=== PATIENT | female | born 1955 | race Caucasian/White ===

== ENCOUNTER 2019-08-23 07:27 | Day surgery (SDC) | payer OTHER ==
[2019-08-17 11:07] VITALS: BMI 36.7
[2019-08-23] MEDS ORDERED: CYCLOPENTOLATE 2% OPHTH SOLN 2 ML BOTTLE ONE (07:38)
[2019-08-23] MEDS ORDERED: CIPROFLOXACIN 0.3% EYE DROPS 5 ML BOTTLE ONE (07:38)
[2019-08-23] MEDS ORDERED: PHENYLEPHRINE 2.5% OPHTH SOLN 15 ML BOTTLE ONE (07:39)
[2019-08-23] MEDS ORDERED: TROPICAMIDE 1% OPHTH SOLN 15 ML BOTTLE ONE (07:39)
[2019-08-23 08:06] VITALS: TEMP 98.1
[2019-08-23] MEDS ORDERED: TROPICAMIDE 1% OPHTH SOLN 15 ML BOTTLE OD ONE ×3 (08:10→08:20)
[2019-08-23] MEDS ORDERED: CIPROFLOXACIN HCL 0.3% OPHTH 2.5ML BOTTLE OD ONE ×3 (08:10→08:20)
[2019-08-23] MEDS ORDERED: PHENYLEPHRINE 2.5% OPHTH SOLN 15 ML BOTTLE OD ONE ×3 (08:10→08:20)
[2019-08-23] MEDS ORDERED: CYCLOPENTOLATE 2% OPHTH SOLN 2 ML BOTTLE OD ONE ×3 (08:10→08:20)
[2019-08-23] MEDS ORDERED: BSS (NA/CA/MG/K) BALANCED SALT SOLUTION OPHTH SOLN 15 ML BOTTLE ONE (09:36)
[2019-08-23] MEDS ORDERED: LIDOCAINE 1% P/F 10 MG/ML VIAL ONE (09:36)
[2019-08-23] MEDS ORDERED: CARBACHOL 0.01% INTRA-OCULAR 1.5 ML VIAL ONE (09:37)
[2019-08-23] MEDS ORDERED: NEO/POLYMYX B SULF/DEXAMETH OPHTHALMIC 5ML BOTTLE ONE (09:37)
[2019-08-23] MEDS ORDERED: MIDAZOLAM HCL 2 MG/2 ML SINGLE DOSE VIAL ONE ×2 (09:49→09:52)
[2019-08-23 10:45] VITALS: BP 150/85; PULSE 74
--- NOTE | 2019-08-24 10:11 | OP ---
DATE OF OPERATION: 08/23/2019 OPERATIVE PROCEDURE: Lens Phacoemulsification with Posterior Chamber Intraocular Lens Placement, Right Eye. PREOPERATIVE DIAGNOSIS: Visually Significant Cataract of Right Eye. POSTOPERATIVE DIAGNOSIS: Visually Significant Cataract of Right Eye. SURGEON: Octavio Estrada MD ANESTHESIA: MAC ANESTHESIOLOGIST: PROCEDURE: The patient was brought to the operating room and placed under monitored anesthesia care by Anesthesia. A drop of Tetracaine was then placed over the right eye. The patient was then prepped and draped in the usual sterile manner. A speculum was then placed over the right eye. The eye was then well irrigated with copious amounts of BSS (balanced salt solution). The operating microscope was then moved into position. A paracentesis was performed using a 15 degree blade. At this point 0.5 mL of 1% preservative free-lidocaine was injected into the anterior chamber. Amvisc plus was then injected into the anterior chamber. A clear corneal incision was then formed using a 2.2 mm keratome. A capsulorrhexis was then performed in a continuous circular fashion beginning with a cystotome completed with an Utratas forceps. Hydrodissection was then performed using BSS on a cannula. The phaco probe was then introduced through the corneal wound and the cataract was removed using the phaco chop technique. Approximately 3 seconds of absolute phaco time was used. The remaining cortex was then removed using irrigation and aspiration with an I/A probe. The capsule was then filled with regular Amvisc and the capsule was noted to be intact. A previously selected foldable posterior chamber intraocular lens was then injected into the capsule through the corneal wound using a lens injector. It was then dialed into position using a Sinskey hook. The Amvisc was then removed using irrigation and aspiration. Miostat was then injected through the paracentesis to constrict the pupil. The paracentesis and corneal wound were then hydrated and noted to be watertight. A drop of Maxitrol was then placed over the eye. The speculum was removed and clear shield was taped over the eye. The patient tolerated the procedure well and there were no surgical complications. The patient was asked to follow up in my office the next day. OCTAVIO ESTRADA M.D. [id number]
== END 2019-08-23 10:40 | disposition home or self-care (01) ==
LOC: FASU 07:27
PROVIDERS: ATTEND Ophthalmology
PROC: 08RJ3JZ Replacement of Right Lens with Synthetic Substitute, Percutaneous Approach (ICD-10-PCS; principal; 2019-08-23 09:51)
DX: H26.8 Other specified cataract (principal)

== ENCOUNTER 2020-01-22 20:18 | Inpatient (IN) | payer OTHER ==
--- NOTE | 2020-01-22 20:32 | PDOC ---
Rapid Medical Evaluation Chief Complaint: Nausea/Vomiting Time Seen by Provider: 01/22/20 20:29 Medical Evaluation: Allergies Allergy/AdvReac Type Severity Reaction Status Date / Time levofloxacin [From Levaquin] Allergy Severe THROAT Verified 08/23/19 07:58 CLOSES Sulfa (Sulfonamide Allergy Severe THROAT Verified 08/23/19 07:58 Antibiotics) CLOSES 01/22/20 20:29 64 year old female c/o vomiting " something is stuck in my lap band" x 3 days. Surgeon: Dr. garcia lap band 2012 A: vomiting P: labs Discharge Disposition - Diagnosis Intractable vomiting with nausea - Referrals - Patient Instructions - Post Discharge Activity
--- NOTE | 2020-01-22 21:13 | PDOC ---
Attending Attestation - Resident Resident Name: Gareth Kaur - ED Attending Attestation I have performed the following: I have examined & evaluated the patient, The case was reviewed & discussed with the resident, I agree w/resident's findings & plan - HPI HPI: 01/22/20 22:53 see resident hpi - Physicial Exam PE: 01/22/20 22:53 see resident exam - Medical Decision Making 01/22/20 22:53 64-year-old female with history of lap band surgery complaining of discomfort near her lap band port as well as nausea/vomiting for several days She now also complains of headache that began several days into the vomiting We will plan for labs including troponin and EKG CT scan of the brain as patient is at risk for subarachnoid hemorrhage in light of vomiting CT scan of the abdomen and pelvis with bariatric protocol p.o. contrast as well as IV contrast to assess for LAP-BAND complications Reglan and IV fluids administered Discharge - Discharge Information Problems reviewed: Yes Clinical Impression/Diagnosis: Vomiting, LAP-BAND surgery status, Headache - Follow up/Referral - Patient Discharge Instructions - Post Discharge Activity
[2020-01-22] MEDS ORDERED: METOCLOPRAMIDE HCL INJECTION 10 MG/2 ML VIAL IVPUSH ONE (21:29)
[2020-01-22] MEDS ORDERED: ACETAMINOPHEN 1000 MG/100 ML VIAL (NON FORMULARY) IVPB ONE (21:29)
[2020-01-22] MEDS ORDERED: SODIUM CHLORIDE 0.9% 500 ML INFUS.BAG IV ONE (21:30)
[2020-01-22] MEDS ORDERED: METOCLOPRAMIDE HCL INJECTION 10 MG/2 ML VIAL ONE (21:35)
[2020-01-22 21:45] LABS: BASO % 0.2 % (0-2.0); EOS % 0.9 % (0-4.5); HEMATOCRIT 45.2 % (32.4-45.2); HEMOGLOBIN 15.4 GM/dL (10.7-15.3); LYMPH % 15.6 % (8-40); MCH 33.2 pg (25.7-33.7); MEAN CELL VOLUME 97.7 fl (80-96); MEAN PLT VOLUME 7.8 fl (7.5-11.1); NEUT % 73.3 % (42.8-82.8); PLATELET COUNT 200 K/MM3 (134-434); RBC 4.63 M/mm3 (3.60-5.2); RDW 12.7 % (11.6-15.6); WHITE BLOOD COUNT 8.2 K/mm3 (4.0-10.0)
--- NOTE | 2020-01-22 21:55 | PDOC ---
History of Present Illness - General Chief Complaint: Nausea/Vomiting Stated Complaint: VOMITING/NAUSEA/HEADACHE Time Seen by Provider: 01/22/20 20:29 - History of Present Illness Initial Comments: 01/22/20 21:41 64yo female w/PMH lap band 2012, fibromyalgia, HTN, RA, OA, hypothyroidism p/w non-bloody vomiting x2 days and inability to tolerate PO. States has not been able to keep food down since eating spare ribs 2 days prior. No nausea, and there is only vomiting after food. Last BM yesterday, and she does not go every day. Passing gas. Also complains of pounding headache different from usual headaches for several hours. Gradual onset, all over head, no photo/phonophobia. Denies f/c, CP, SOB, AP, urinary symptoms. PMHX: as in HPI PSHX: lap band, hysterectomy Meds:atenolol, synthroid, simvastatin, trazodone. gabapentin Allergies: sulfa, levoquine Tob: denies Etoh: occ. wine Rec drugs: denies PCP: Surgeon: Tony CHEN GENERAL/CONSTITUTIONAL: No fever or chills. No weakness. HEAD, EYES, EARS, NOSE AND THROAT: No change in vision. No ear pain or discharge. No sore throat. CARDIOVASCULAR: No chest pain or shortness of breath RESPIRATORY: No cough, wheezing, or hemoptysis. GASTROINTESTINAL: +vomiting, no diarrhea or constipation. GENITOURINARY: No dysuria, frequency, or change in urination. MUSCULOSKELETAL: No joint or muscle swelling or pain. No neck or back pain. SKIN: No rash NEUROLOGIC: + headache, no vertigo, loss of consciousness, or change in streng th/sensation. ENDOCRINE: No increased thirst. No abnormal weight change HEMATOLOGIC/LYMPHATIC: No anemia, easy bleeding, or history of blood clots. ALLERGIC/IMMUNOLOGIC: No hives or skin allergy. PE GENERAL: Awake, alert, and fully oriented, in no acute distress HEAD: No signs of trauma, normocephalic, atraumatic EYES: PERRLA, EOMI, sclera anicteric, conjunctiva clear ENT: hearing grossly normal, nares patent, oropharynx clear without exudates. Moist mucosa NECK: Normal ROM, supple, no lymphadenopathy, JVD, or masses LUNGS: No distress, speaks full sentences, clear to auscultation bilaterally HEART: Regular rate and rhythm, normal S1 and S2, no murmurs, rubs or gallops, peripheral pulses normal and equal bilaterally. ABDOMEN: Soft, tender around lap band port (baseline), normoactive bowel sounds. No guarding, no rebound. No masses EXTREMITIES : Normal inspection, Normal range of motion, no edema. No clubbing or cyanosis. NEUROLOGICAL: Cranial nerves II through XII grossly intact. Normal speech, no focal sensorimotor deficits SKIN: Warm, Dry, normal turgor, no rashes or lesions noted Assessment and Plan 64yo female w/PMH lap band 2011, fibromyalgia, HTN, RA, OA, hypothyroidism p/w non-bloody vomiting x2 days and inability to tolerate PO, also "different from usual" headache for several hours. #vomiting, abdominal tenderness around port. Differential includes but not limited to obstruction, bowel ischemia, ACS, gastroenteritis, pancreatitis -EKG: NSR -CBC, CMP, lipase, cardiac enzymes, lactate: wnl, hemo-concentrated -CT A/P with oral and IV contrast -Reglan -1000ml NS #headache. Differential includes but not limited to dehydration, tension, SAH -CT Head: wnl -CT A/P: equivocal (see report) Reassess: Patient reports 3 episodes of watery emesis after drinkining oral contrast. Dr. Jimenez called and aware. Will follow as consumer experience consultant Admit to hospitalist 01/22/20 23:51 01/23/20 00:09 Signed out to admitting team. Past History - Medical History Allergies/Adverse Reactions: Allergies Allergy/AdvReac Type Severity Reaction Status Date / Time levofloxacin [From Levaquin] Allergy Severe THROAT Verified 01/22/20 20:30 CLOSES Sulfa (Sulfonamide Allergy Severe THROAT Verified 01/22/20 20:30 Antibiotics) CLOSES Home Medications: Ambulatory Orders Atenolol [Tenormin -] 50 mg PO DAILY 09/29/11 Levothyroxine [Synthroid -] 50 mcg PO DAILY 12/11/15 Simvastatin [Zocor -] 20 mg PO HS 12/11/15 traZODone HCL [Desyrel -] 50 mg PO HS 12/11/15 Cyanocobalamin (Vitamin B-12) [Vitamin B12] 2,500 mcg PO DAILY 08/17/19 Melatonin 10 mg PO HS 08/17/19 Vitamin E 800 unit PO DAILY 08/17/19 Anemia: No Asthma: Yes (seasonal) Cancer: No Cardiac Disorders: Yes (PT ON ATENOLOL R/T "PALPITATIONS") CVA: No COPD: No CHF: No Dementia: No Diabetes: No GI Disorders: Yes (GERD) Disorders: No HTN: Yes Hypercholesterolemia: Yes Liver Disease: No Seizures: No Thyroid Disease: Yes (2010) - Surgical History Abdominal Surgery: Yes (lap band 09/2011) Appendectomy: No Cardiac Surgery: No Cholecystectomy: No Lung Surgery: No Neurologic Surgery: No Orthopedic Surgery: No - Psycho-Social/Smoking History Smoking History: Never smoked Have you smoked in the past 12 months: No - Substance Abuse Hx (Audit-C & DAST Scrn) How often the patient has a drink containing alcohol: Never Score: In Men: 4 or > Positive; In Women: 3 or > Positive: 0 Screen Result (Pos requires Nsg. Audit-10AR): Negative In the last yr the pt used illegal drug/Rx for NonMed reason: No Score: Yes response is considered Positive: 0 Screen Result (Positive result requires Nsg. DAST-10): Negative *Physical Exam - Vital Signs Last Vital Signs Temp Pulse Resp BP Pulse Ox 98.7 F 82 18 176/89 H 97 01/22/20 20:28 01/22/20 20:28 01/22/20 20:28 01/22/20 20:28 01/22/20 20:28 ED Treatment Course - LABORATORY CBC & Chemistry Diagram: 01/22/20 21:27 01/22/20 21:27 - RADIOLOGY Radiology Studies Ordered: Category Date Time Status ABDOMEN & PELVIS CT WITH CONTR [CT] Stat CT Scan 01/22/20 21:[address] WITHOUT CONTRAST [CT] Stat CT Scan 01/22/20 21:35 Ordered Discharge - Discharge Information Problems reviewed: Yes Clinical Impression/Diagnosis: Vomiting, LAP-BAND surgery status, Headache - Follow up/Referral Referrals: Matthew Bañuelos MD [Primary Care Provider] - - Patient Discharge Instructions - Post Discharge Activity
[2020-01-22 22:12] LABS: ALBUMIN 3.9 g/dl (3.4-5.0); BILIRUBIN,TOTAL 0.5 mg/dL (0.2-1); CALCIUM 9.2 mg/dL (8.5-10.1); POTASSIUM 4.2 mmol/L (3.5-5.1); TOT PROT 6.9 g/dl (6.4-8.2)
[2020-01-23 00:41] LABS: URINE APPEARANCE CLEAR; URINE BILIRUBIN NEGATIVE (NEGATIVE); URINE COLOR YELLOW; URINE GLUCOSE (UA) NEGATIVE (NEGATIVE); URINE KETONE 1+ (NEGATIVE); URINE LEUK ESTERASE NEGATIVE (NEGATIVE); URINE NITRITE NEGATIVE (NEGATIVE); URINE PROTEIN NEGATIVE (NEGATIVE); URINE UROBILINOGEN 0.2 mg/dL (0.2-1.0)
[2020-01-23] MEDS ORDERED: ACETAMINOPHEN/CAFFEINE/BUTALBITAL 1 TAB PO PRN (00:44)
[2020-01-23] MEDS ORDERED: FAMOTIDINE 20 MG/50 ML IVPB 20 MG/50 ML MG IVPB ONE ×2 (00:47→01:00)
--- NOTE | 2020-01-23 00:50 | PN ---
Teaching Attending Note Name of Resident: Neri Austin ATTENDING PHYSICIAN STATEMENT I saw and evaluated the patient. I reviewed the resident's note and discussed the case with the resident. I agree with the resident's findings and plan as documented. SUBJECTIVE: This is a 64 year old woman with a history of HTN, hyperlipidemia, hypothyroidism, obesity, lap band, hysterectomy who comes to the ED complaining of nausea and vomiting x 2 days. She denies abdominal pain, fever, chills, hematemesis, diarrhea, melena, rectal bleeding. Her last BM was yesterday and she reports passing flatus. She had a similar episode in 2016 which required loosening of the lap band. OBJECTIVE: Vital Signs Period Temp Pulse Resp BP Sys/Colbert Pulse Ox Last 24 Hr 98.6 F-98.7 F 75-82 18-18 150-176/77-89 95-97 HEART: S1S2, RRR LUNGS: Clear ABDOMEN: Obese, soft, non-tender, non-distended, normal BS EXTREMITIES: No edema Laboratory Tests 01/22/20 01/22/20 01/22/20 21:27 21:27 21:27 WBC 8.2 RBC 4.63 Hgb 15.4 H Hct 45.2 D MCV 97.7 H MCH 33.2 MCHC 34.0 RDW 12.7 Plt Count 200 D MPV 7.8 D Absolute Neuts (auto) 6.0 Neutrophils % 73.3 Lymphocytes % 15.6 Monocytes % 10.0 Eosinophils % 0.9 Basophils % 0.2 Nucleated RBC % 0 Sodium 142 Potassium 4.2 Chloride 106 Carbon Dioxide 27 Anion Gap 9 BUN 14.0 Creatinine 1.0 Est GFR (CKD-EPI)AfAm 68.47 Est GFR (CKD-EPI)NonAf 59.07 Random Glucose 96 Lactic Acid Calcium 9.2 Total Bilirubin 0.5 AST 11 L ALT 19 Alkaline Phosphatase 52 Creatine Kinase 28 Troponin I < 0.02 Total Protein 6.9 Albumin 3.9 Lipase 125 Urine Color Urine Appearance Urine pH Ur Specific [place] Urine Protein Urine Glucose (UA) Urine Ketones Urine Blood Urine Nitrite Urine Bilirubin Urine Urobilinogen Ur Leukocyte Esterase 01/22/20 01/23/20 21:27 00:20 WBC RBC Hgb Hct MCV MCH MCHC RDW Plt Count MPV Absolute Neuts (auto) Neutrophils % Lymphocytes % Monocytes % Eosinophils % Basophils % Nucleated RBC % Sodium Potassium Chloride Carbon Dioxide Anion Gap BUN Creatinine Est GFR (CKD-EPI)AfAm Est GFR (CKD-EPI)NonAf Random Glucose Lactic Acid 0.9 Calcium Total Bilirubin AST ALT Alkaline Phosphatase Creatine Kinase Troponin I Total Protein Albumin Lipase Urine Color Yellow Urine Appearance Clear Urine pH 7.0 Ur Specific [place] 1.044 H Urine Protein Negative Urine Glucose (UA) Negative Urine Ketones 1+ H Urine Blood Negative Urine Nitrite Negative Urine Bilirubin Negative Urine Urobilinogen 0.2 Ur Leukocyte Esterase Negative Home Medications Medication Instructions Recorded Atenolol [Tenormin -] 50 mg PO DAILY 09/29/11 Levothyroxine [Synthroid -] 50 mcg PO DAILY 12/11/15 Simvastatin [Zocor -] 20 mg PO HS 12/11/15 traZODone HCL [Desyrel -] 50 mg PO HS 12/11/15 Cyanocobalamin (Vitamin B-12) 2,500 mcg PO DAILY 08/17/19 [Vitamin B12] Melatonin 10 mg PO HS 08/17/19 Vitamin E 800 unit PO DAILY 08/17/19 ASSESSMENT AND PLAN: This is a 64 year old woman with a history of HTN, hyperlipidemia, hypothyroidism, obesity, lap band, hysterectomy who presented to the ED with nausea and vomiting x 2 days. 1. Nausea/vomiting - No evidence of SBO - NPO - IV fluid - Bariatric surgery consult to evaluate lap band
--- NOTE | 2020-01-23 00:55 | HP ---
CHIEF COMPLAINT: Nausea, vomiting and headache x 2 days HISTORY OF PRESENT ILLNESS: Pt is a 64 year old female with PMHx of lap band surgery in 2012 placed by gen surg (Dr. Jimenez), hypertension, hypothroidism, hyperlipidemia presenting with nausea and vomiting for the past 2 days. Pt states the episodes have been too numerous to count since the episodes began. She was eating spare ribs when the episodes of vomiting began. Pt states that any time she tries to ingest anything, whether solid or liquid, she is unable to keep it down and vomits it out immediately. Descirbes the vomit as nonbloody, nonbilious and only consists of whatever she just attempted to ingest. Pt states last BM was yesterday, and no urinary changes. Pt also reports headache that started 2 days ago as well. She reports it as constant, and diffusely throughout her head. She has migraines at home but this is different than those episodes. Nothing she has taken has helped her symptoms. In ED, pt given Reglan and given 1L NS with no improvement of symptoms. Pt states this is the same symptoms and presentation she had as in 2016 when she was admitted to the hospital. GI (Dr. Olguin) did EGD and contrast didn't pass past the lap band as band had malpositioned and slipped since surgery. 3 mL of fluid was aspirated and patient felt relief afterwards, tolerating PO and barium was noted to flow past band easily afterwards. Of note, pt begun to desaturate during procedure after aspiration, recovered once EGD scope removed. Last colonoscopy 5 years ago unremarkable. Admits to nausea and numerous episodes of vomiting and headache. Denies abdominal pain, diarrhea, constipation, chest pain, SOB, urinary issues. PAST MEDICAL HISTORY: As stated in HPI PAST SURGICAL HISTORY: Lap band in 2012 Hysterectomy LORNA/BSO Social History: Smoking: Denies Alcohol: Rarely, social occasions Drugs: Denies Allergies levofloxacin [From Levaquin] Allergy (Severe, Verified 01/22/20 20:30) THROAT CLOSES Sulfa (Sulfonamide Antibiotics) Allergy (Severe, Verified 01/22/20 20:30) THROAT CLOSES HOME MEDICATIONS: Home Medications Medication Instructions Recorded Atenolol [Tenormin -] 50 mg PO DAILY 09/29/11 Levothyroxine [Synthroid -] 50 mcg PO DAILY 12/11/15 Simvastatin [Zocor -] 20 mg PO HS 12/11/15 traZODone HCL [Desyrel -] 50 mg PO HS 12/11/15 Cyanocobalamin (Vitamin B-12) 2,500 mcg PO DAILY 08/17/19 [Vitamin B12] Melatonin 10 mg PO HS 08/17/19 Vitamin E 800 unit PO DAILY 08/17/19 REVIEW OF SYSTEMS CONSTITUTIONAL: Admits headache Absent: fever, chills, diaphoresis, generalized weakness, malaise, loss of appetite, weight change HEENT: Absent: rhinorrhea, nasal congestion, throat pain, throat swelling, difficulty swallowing, mouth swelling, ear pain, eye pain, visual changes CARDIOVASCULAR: Absent: chest pain, syncope, palpitations, irregular heart rate, lightheadedness, peripheral edema RESPIRATORY: Absent: cough, shortness of breath, dyspnea with exertion, orthopnea, wheezing, stridor, hemoptysis GASTROINTESTINAL: Admits to nausea, vomiting Absent: abdominal pain, abdominal distension, diarrhea, constipation, melena, hematochezia GENITOURINARY: Absent: dysuria, frequency, urgency, hesitancy, hematuria, flank pain, genital pain MUSCULOSKELETAL: Absent: myalgia, arthralgia, joint swelling, back pain, neck pain SKIN: Absent: rash, itching, pallor HEMATOLOGIC/IMMUNOLOGIC: Absent: easy bleeding, easy bruising, lymphadenopathy, frequent infections ENDOCRINE: Absent: unexplained weight gain, unexplained weight loss, heat intolerance, cold intolerance NEUROLOGIC: Absent: headache, focal weakness or paresthesias, dizziness, unsteady gait, seizure, mental status changes, bladder or bowel incontinence PSYCHIATRIC: Absent: anxiety, depression, suicidal or homicidal ideation, hallucinations. PHYSICAL EXAMINATION Vital Signs - 24 hr 01/22/20 01/22/20 20:28 20:55 Temperature 98.7 F 98.6 F Pulse Rate 82 Pulse Rate [ 75 Apical] Respiratory 18 18 Rate Blood Pressure 176/89 H Blood Pressure 150/77 [Right Arm] O2 Sat by Pulse 97 95 Oximetry (%) GENERAL: Awake, alert, and fully oriented, in no acute distress. HEAD: Normal with no signs of trauma. EYES: Pupils equal, round and reactive to light, extraocular movements intact, sclera anicteric, conjunctiva clear. No lid lag. EARS, NOSE, THROAT: Ears normal, nares patent, oropharynx clear without exudates. Moist mucous membranes. NECK: Normal range of motion, supple without lymphadenopathy, JVD, or masses. LUNGS: Breath sounds equal, clear to auscultation bilaterally. No wheezes, and no crackles. No accessory muscle use. HEART: Regular rate and rhythm, normal S1 and S2 without murmur, rub or gallop. ABDOMEN: Soft, nontender, not distended, normoactive bowel sounds, no guarding, no rebound, no masses. No hepatomegaly or splenomegaly. MUSCULOSKELETAL: Normal range of motion at all joints. No bony deformities or tenderness. No CVA tenderness. UPPER EXTREMITIES: 2+ pulses, warm, well-perfused. No cyanosis. No clubbing. No peripheral edema. LOWER EXTREMITIES: 2+ pulses, warm, well-perfused. No calf tenderness. No peripheral edema. NEUROLOGICAL: Cranial nerves II-XII intact. Normal speech. Normal gait. PSYCHIATRIC: Cooperative. Good eye contact. Appropriate mood and affect. SKIN: Warm, dry, normal turgor, no rashes or lesions noted, normal capillary refill. Laboratory Results - last 24 hr 01/22/20 01/22/20 01/22/20 21:27 21:27 21:27 WBC 8.2 RBC 4.63 Hgb 15.4 H Hct 45.2 D MCV 97.7 H MCH 33.2 MCHC 34.0 RDW 12.7 Plt Count 200 D MPV 7.8 D Absolute Neuts (auto) 6.0 Neutrophils % 73.3 Lymphocytes % 15.6 Monocytes % 10.0 Eosinophils % 0.9 Basophils % 0.2 Nucleated RBC % 0 Sodium 142 Potassium 4.2 Chloride 106 Carbon Dioxide 27 Anion Gap 9 BUN 14.0 Creatinine 1.0 Est GFR (CKD-EPI)AfAm 68.47 Est GFR (CKD-EPI)NonAf 59.07 Random Glucose 96 Lactic Acid Calcium 9.2 Total Bilirubin 0.5 AST 11 L ALT 19 Alkaline Phosphatase 52 Creatine Kinase 28 Troponin I < 0.02 Total Protein 6.9 Albumin 3.9 Lipase 125 Urine Color Urine Appearance Urine pH Ur Specific [place] Urine Protein Urine Glucose (UA) Urine Ketones Urine Blood Urine Nitrite Urine Bilirubin Urine Urobilinogen Ur Leukocyte Esterase 01/22/20 01/23/20 21:27 00:20 WBC RBC Hgb Hct MCV MCH MCHC RDW Plt Count MPV Absolute Neuts (auto) Neutrophils % Lymphocytes % Monocytes % Eosinophils % Basophils % Nucleated RBC % Sodium Potassium Chloride Carbon Dioxide Anion Gap BUN Creatinine Est GFR (CKD-EPI)AfAm Est GFR (CKD-EPI)NonAf Random Glucose Lactic Acid 0.9 Calcium Total Bilirubin AST ALT Alkaline Phosphatase Creatine Kinase Troponin I Total Protein Albumin Lipase Urine Color Yellow Urine Appearance Clear Urine pH 7.0 Ur Specific [place] 1.044 H Urine Protein Negative Urine Glucose (UA) Negative Urine Ketones 1+ H Urine Blood Negative Urine Nitrite Negative Urine Bilirubin Negative Urine Urobilinogen 0.2 Ur Leukocyte Esterase Negative ASSESSMENT/PLAN: Pt is a 64yo F with a PMHx of lap band surgery performed by Dr. Jimenez in 2011, and fluid removal via EGD for similar symptoms with relief [place] [address] Olguin and HTN presenting with nausea, vomiting and headache for the past 2 days. Noted to be hypertensive on admission (176/), unremarkable physical exam. CT abdomen pelvis shows no obstruction, CT head with no acute changes. Admitted for na usea/vomiting likely secondary to lap band, for follow up with GI and surgery. #Nausea/vomiting - Hx of lap band surgery in 2011 - EGD done in 2016 and malpositioned lap band was found, 3 mL of fluid was removed - Due to similar presentation as 2016, likely secondary to band malposition and fluid collection causing intolerance to PO - CT abdomen/pelvis showed no obstruction or other abnormalities - Consulted surgery (Dr. Jimenez); had done original lap band surgery in 2011 - Consulted GI (Dr. Hnids) for possible EGD and evaluation - NPO for possible procedure - Given Reglan in ED with no improvement - Gave Zofran as she uses it at home with improvement - NS @ 100cc/hr due to fluid loss during vomiting episodes - Pepcid given once due to vomiting #Headache - Possibly secondary to nausea/vomiting, hypertension - CT head negative for acute bleed - Fiorcet given, helps at home with migraines #Hypertension - Pt hypertensive in ED (176/69), later decreased to 150s/70s - Continue home atenolol and monitor vitals #Hx of hypothyroidism - Cont home synthroid #Hx of hyperlipidemia - Cont home simvastatin #Rule out COVID - COVID test pending FEN: - NPO for possible procedure - NS @ 100cc/hr - No electrolyte abnormalities; BMP in AM Prophylaxis: - SCD ; no chemical therapy at this time due to possible surgery Dispo: Admitted to med-surg for possible procedure. Headache noted, given Fiorcet and will monitor for improvement. Continue home meds and monitor BP. Follow up on recs from GI and surgery. Family Medical History Family History: Unremarkable Problem List - Problem (1) Hyperlipidemia Code(s): E78.5 - HYPERLIPIDEMIA, UNSPECIFIED (2) Intractable vomiting with nausea Code(s): R11.2 - NAUSEA WITH VOMITING, UNSPECIFIED (3) LAP-BAND surgery status Code(s): Z98.84 - BARIATRIC SURGERY STATUS (4) Rheumatoid arthritis Code(s): M06.9 - RHEUMATOID ARTHRITIS, UNSPECIFIED (5) Coffee ground emesis Code(s): K92.0 - HEMATEMESIS (6) GERD (gastroesophageal reflux disease) Code(s): K21.9 - GASTRO-ESOPHAGEAL REFLUX DISEASE WITHOUT ESOPHAGITIS Qualifiers: Esophagitis presence: without esophagitis Qualified Code(s): K21.9 - Gastro-esophageal reflux disease without esophagitis (7) Gastric band slippage Code(s): T85.528A - DISPLACEMENT OF GASTROINTESTINAL PROSTH DEV/GRFT, INIT (8) Gastritis Code(s): K29.70 - GASTRITIS, UNSPECIFIED, WITHOUT BLEEDING Visit type - Emergency Visit Emergency Visit: Yes ED Registration Date: 01/22/20 Care time: The patient presented to the Emergency Department on the above date and was hospitalized for further evaluation of their emergent condition. - New Patient This patient is new to me today: Yes Date on this admission: 01/22/20 - Critical Care Critical Care patient: No ATTENDING PHYSICIAN STATEMENT I saw and evaluated the patient. I reviewed the resident's note and discussed the case with the resident. I agree with the resident's findings and plan as documented. SUBJECTIVE: OBJECTIVE: ASSESSMENT AND PLAN:
[2020-01-23] MEDS: SODIUM CHLORIDE 1,000 ML IV SCH ×2 (01:16→11:17)
[2020-01-23 04:22] VITALS: BMI 36.3
[2020-01-23] MEDS ORDERED: ACETAMINOPHEN 1000 MG/100 ML VIAL (NON FORMULARY) IVPB ONE ×2 (06:48→17:54)
[2020-01-23 07:14] LABS: BASO % 0.4 % (0-2.0); EOS % 0.6 % (0-4.5); HEMATOCRIT 43.5 % (32.4-45.2); HEMOGLOBIN 14.8 GM/dL (10.7-15.3); LYMPH % 17.8 % (8-40); MCH 33.8 pg (25.7-33.7); MEAN CELL VOLUME 99.3 fl (80-96); MEAN PLT VOLUME 8.4 fl (7.5-11.1); MONO % 10.9 % (3.8-10.2); NEUT % 70.3 % (42.8-82.8); PLATELET COUNT 186 K/MM3 (134-434); RBC 4.38 M/mm3 (3.60-5.2); WHITE BLOOD COUNT 8.2 K/mm3 (4.0-10.0)
[2020-01-23 07:40] LABS: BLOOD UREA NITROGEN 10.5 mg/dL (7-18); CALCIUM 8.4 mg/dL (8.5-10.1); CREATININE 0.8 mg/dL (0.55-1.3); POTASSIUM 3.6 mmol/L (3.5-5.1)
--- NOTE | 2020-01-23 09:57 | EKG ---
Test Reason : Blood Pressure : / mmHG Vent. Rate : 073 BPM Atrial Rate : 073 BPM P-R Int : 206 ms QRS Dur : 074 ms QT Int : 386 ms P-R-T Axes : 050 -18 000 degrees QTc Int : 425 ms NORMAL SINUS RHYTHM WITH 1ST DEGREE A-V BLOCK LEFT VENTRICULAR HYPERTROPHY NONSPECIFIC ST ABNORMALITY ABNORMAL ECG Confirmed by MD YUNG, SAKSHI ([id number]) on 01/23/2020 9:57:06 AM Referred By: Confirmed By:SAKSHI BARRAGAN MD
[2020-01-23] MEDS: ATENOLOL 50 MG TABLET (FP) PO SCH ×2 (11:19→18:45)
--- NOTE | 2020-01-23 13:01 | PN ---
Physical Exam: SUBJECTIVE: Patient seen and examined at bedside this morning. Patient admitted overnight due to nausea and vomiting. patient would not want to try anything PO until she sees GI/surgeon. Otherwise, no more episodes of N/V, denies fevers, chills, chest pain, SOB , abdominal pain, diarrhea, urinary symptoms OBJECTIVE: Vital Signs Temperature 99.0 F 01/23/20 09:50 Pulse Rate 78 01/23/20 09:50 Respiratory Rate 18 01/23/20 09:50 Blood Pressure 160/88 01/23/20 09:50 O2 Sat by Pulse Oximetry (%) 97 01/23/20 02:54 GENERAL: The patient is awake, alert, and fully oriented, in no acute distress. HEAD: Normal with no signs of trauma. EYES: PERRLA, EOMI, sclera anicteric, conjunctiva clear. ENT: moist mucous membranes. NECK: Trachea midline, full range of motion, supple. LUNGS: Breath sounds equal, clear to auscultation bilaterally HEART: Regular rate and rhythm, S1, S2 ABDOMEN: Soft, nontender, nondistended, normoactive bowel sounds EXTREMITIES: 2+ pulses, warm, well-perfused, no edema. NEUROLOGICAL: Cranial nerves II through XII grossly intact. Normal speech PSYCH: Normal mood, normal affect. SKIN: Warm, dry, normal turgor Laboratory Results - last 24 hr 01/22/20 01/22/20 01/22/20 21:27 21:27 21:27 WBC 8.2 RBC 4.63 Hgb 15.4 H Hct 45.2 D MCV 97.7 H MCH 33.2 MCHC 34.0 RDW 12.7 Plt Count 200 D MPV 7.8 D Absolute Neuts (auto) 6.0 Neutrophils % 73.3 Lymphocytes % 15.6 Monocytes % 10.0 Eosinophils % 0.9 Basophils % 0.2 Nucleated RBC % 0 Sodium 142 Potassium 4.2 Chloride 106 Carbon Dioxide 27 Anion Gap 9 BUN 14.0 Creatinine 1.0 Est GFR (CKD-EPI)AfAm 68.47 Est GFR (CKD-EPI)NonAf 59.07 Random Glucose 96 Lactic Acid Calcium 9.2 Total Bilirubin 0.5 AST 11 L ALT 19 Alkaline Phosphatase 52 Creatine Kinase 28 Troponin I < 0.02 Total Protein 6.9 Albumin 3.9 Lipase 125 Urine Color Urine Appearance Urine pH Ur Specific [place] Urine Protein Urine Glucose (UA) Urine Ketones Urine Blood Urine Nitrite Urine Bilirubin Urine Urobilinogen Ur Leukocyte Esterase 01/22/20 01/23/20 01/23/20 21:27 00:20 06:17 WBC 8.2 RBC 4.38 Hgb 14.8 Hct 43.5 MCV 99.3 H MCH 33.8 H MCHC 34.0 RDW 13.0 Plt Count 186 MPV 8.4 Absolute Neuts (auto) 5.8 Neutrophils % 70.3 Lymphocytes % 17.8 Monocytes % 10.9 H Eosinophils % 0.6 Basophils % 0.4 Nucleated RBC % 0 Sodium Potassium Chloride Carbon Dioxide Anion Gap BUN Creatinine Est GFR (CKD-EPI)AfAm Est GFR (CKD-EPI)NonAf Random Glucose Lactic Acid 0.9 Calcium Total Bilirubin AST ALT Alkaline Phosphatase Creatine Kinase Troponin I Total Protein Albumin Lipase Urine Color Yellow Urine Appearance Clear Urine pH 7.0 Ur Specific [place] 1.044 H Urine Protein Negative Urine Glucose (UA) Negative Urine Ketones 1+ H Urine Blood Negative Urine Nitrite Negative Urine Bilirubin Negative Urine Urobilinogen 0.2 Ur Leukocyte Esterase Negative 01/23/20 06:17 WBC RBC Hgb Hct MCV MCH MCHC RDW Plt Count MPV Absolute Neuts (auto) Neutrophils % Lymphocytes % Monocytes % Eosinophils % Basophils % Nucleated RBC % Sodium 141 Potassium 3.6 Chloride 108 H Carbon Dioxide 25 Anion Gap 8 BUN 10.5 Creatinine 0.8 Est GFR (CKD-EPI)AfAm 89.67 Est GFR (CKD-EPI)NonAf 77.37 Random Glucose 85 Lactic Acid Calcium 8.4 L Total Bilirubin AST ALT Alkaline Phosphatase Creatine Kinase Troponin I Total Protein Albumin Lipase Urine Color Urine Appearance Urine pH Ur Specific [place] Urine Protein Urine Glucose (UA) Urine Ketones Urine Blood Urine Nitrite Urine Bilirubin Urine Urobilinogen Ur Leukocyte Esterase Active Medications Generic Name Dose Route Start Last Admin Trade Name Freq PRN Reason Stop Dose Admin Acetaminophen/Butalbital/Caffeine 1 tablet 01/23/20 00:44 Fioricet - PO Q6H PRN HEADACHE Atenolol 50 mg 01/23/20 10:00 01/23/20 11:19 Tenormin - PO Not Given DAILY JOSE MARTIN Sodium Chloride 1,000 mls @ 100 mls/hr 01/23/20 00:45 01/23/20 11:17 Normal Saline - IV 100 mls/hr ASDIR JOSE MARTIN Administration Ondansetron HCl 4 mg 01/23/20 00:43 Zofran Injection IVPUSH Q6H PRN NAUSEA ASSESSMENT/PLAN: Pt is a 64yo F with a PMHx of lap band surgery performed by Dr. Jimenez in 2011, and fluid removal via EGD for similar symptoms with relief in [address] Olguin and HTN presenting with nausea, vomiting and headache for the past 2 days. Noted to be hypertensive on admission (176/79), unremarkable physical exam. CT abdomen pelvis shows no obstruction, CT head with no acute changes. Admitted for nausea/vomiting likely secondary to lap band, for follow up with GI and surgery. #Nausea/vomiting - Hx of lap band surgery in 2011 - EGD done in 2016 and malpositioned lap band was found, 3 mL of fluid was removed - Due to similar presentation as 2016, likely secondary to band malposition and fluid collection causing intolerance to PO - CT abdomen/pelvis showed no obstruction or other abnormalities - Consulted surgery (Dr. Jimenez) - Consulted GI (Dr. Hinds) - NPO for possible procedure, patient refusing to try PO at this time without evaluation from GI/surgery - Gave Zofran as she uses it at home with improvement - NS @ 100cc/hr #Headache - Possibly secondary to nausea/vomiting, heat - CT head negative for acute bleed - Fioricet given, helps at home with migraines #Hypertension - Continue home atenolol and monitor vitals #Hx of hypothyroidism - Cont home synthroid #Hx of hyperlipidemia - Cont home simvastatin #Rule out COVID - COVID test pending #FEN: - NPO for possible procedure - NS @ 100cc/hr - routine bmp monitoring #Prophylaxis: - SCD ; no chemical therapy at this time due to possible surgery #Dispo: -med surg Visit type - Emergency Visit Emergency Visit: Yes ED Registration Date: 01/22/20 Care time: The patient presented to the Emergency Department on the above date and was hospitalized for further evaluation of their emergent condition. - New Patient This patient is new to me today: Yes Date on this admission: 01/23/20 - Critical Care Critical Care patient: No ATTENDING PHYSICIAN STATEMENT I saw and evaluated the patient. I reviewed the resident's note and discussed the case with the resident. I agree with the resident's findings and plan as documented. SUBJECTIVE: OBJECTIVE: ASSESSMENT AND PLAN:
--- NOTE | 2020-01-23 16:25 | CONSULT ---
Consult - text type - Consultation Consultation Note: 01/23/2020 64 y.o. female well-known to me who presents with 2 day history of N/V after eating ribs on Wednesday. Pt states could not hold down food or water. Pt with Lap-Band in 2011, and presented with similar complaints in 2015. At that time fluid was removed and patient recovered with no problems. Pt states has gained weight last few years, but recently lost 6 pounds after retiring in the last few months. P/E- Gen- awake, alert, NAD tongue- slight dehydration Abd- all trocar sites well-healed right sub-Q port palpated in upper abdomen WBC-8.2 H/H-14.8/43.5 UGI (Barium)- performed in Radiology department Band at 90 degree angle (should be at 45-60 degrees) Increased stomach above Band and Barium did not pass Under sterile conditions, in x-ray, right sub-Q port accessed and all fluid removed (3.0 cc NS). Barium then flowed past band into distal stomach. I- Vomiting secondary to partially slipped gastric band Rec- 1 Keep Band emptied with no fluid 2 Begin liquids today, advance to soft diet in AM as tolerated 3 May be discharged home 01/23 if tolerating soft diet 4 F/U with Dr Jimenez (Bariatric Surgery) in 3 weeks, or sooner if symptoms return
--- NOTE | 2020-01-23 18:15 | CON.GI ---
Consult Consult Specialty:: Gastroenterology ( covering the [facility] GI service) Referred by:: Dr Neri Austin Reason for Consultation:: Vomiting - History of Present Illness Chief Complaint: Vomiting History of Present Illness: 64F developed intractible vomiting been after eating some spare ribs. She has already been seen by Dr Jimenez who determined that she had an obstruction as her gastric ring slipped due to repeated vomiting. He has already relieved the obstruction by decompressing the lap band. She has no vomiting at present. She had a UGI bleed in 2016 when this previously occurred in 2016. An attempted EGD by Dr West on 12/12/15 had to be terminated when she developed hypoxemia. No bleeding source was determined. She did have a colonoscopy [address] Ramos which revealed a normal colon - History Source History Provided By: Patient Limitations to Obtaining History: No Limitations - Past Medical History Cardio/Vascular: Yes: HTN, Hyperlipdemia, Other (arrhythmia) Gastrointestinal: Yes: Other (H/O Lap band 4 Y back) Musculoskeletal: Yes: Osteoarthritis Rheumatology: Yes: Fibromyalgia, Rheumatoid Arthritis Endocrine: Yes: Hypothyroidism - Past Surgical History Past Surgical History: Yes: Bariatric Surgery (S/P Lap ban 4 Y back), Cataract Removal (right cataract), Colonoscopy, Hysterectomy (TAHBSO for precancerous fibroids complicated by intraoperative hemorrhage that required transfusions and conversion to an open procedure), Upper Endoscopy - Alcohol/Substance Use Hx Alcohol Use: Yes (glass of wine a week) History of Substance Use: reports: None - Smoking History Smoking history: Never smoked Have you smoked in the past 12 months: No - Social History Usual Living Arrangement: With Spouse ADL: Independent Occupation: retired Nurse at [employer] Place of : [employer] History of Recent Travel: No Home Medications - Allergies Allergies/Adverse Reactions: Allergies Allergy/AdvReac Type Severity Reaction Status Date / Time levofloxacin [From Levaquin] Allergy Severe THROAT Verified 01/22/20 20:30 CLOSES Sulfa (Sulfonamide Allergy Severe THROAT Verified 01/22/20 20:30 Antibiotics) CLOSES - Home Medications Home Medications: Ambulatory Orders Atenolol [Tenormin -] 50 mg PO DAILY 09/29/11 Levothyroxine [Synthroid -] 50 mcg PO DAILY 12/11/15 Simvastatin [Zocor -] 20 mg PO HS 12/11/15 traZODone HCL [Desyrel -] 50 mg PO HS 12/11/15 Cyanocobalamin (Vitamin B-12) [Vitamin B12] 2,500 mcg PO DAILY 08/17/19 Melatonin 10 mg PO HS 08/17/19 Vitamin E 800 unit PO DAILY 08/17/19 Family Medical History Family Hx Cancer: Mother ( f kidney cancer) Family Hx Cardiac Disorders: Father ( dmI) Family Hx Diabetes: Father Review of Systems - Review of Systems Constitutional: reports: No Symptoms Eyes: reports: No Symptoms HENT: reports: No Symptoms Neck: reports: No Symptoms Cardiovascular: reports: No Symptoms Respiratory: reports: No Symptoms Gastrointestinal: reports: Nausea, Vomiting Genitourinary: reports: No Symptoms Physical Exam-GI Vital Signs: Vital Signs Temperature 97.4 F L 01/23/20 16:45 Pulse Rate 88 01/23/20 16:45 Respiratory Rate 20 01/23/20 16:45 Blood Pressure 140/80 01/23/20 16:45 O2 Sat by Pulse Oximetry (%) 97 01/23/20 02:54 CBC,CMP WBC 8.2 K/mm3 (4.0-10.0) 01/23/20 06:17 RBC 4.38 M/mm3 (3.60-5.2) 01/23/20 06:17 Hgb 14.8 GM/dL (10.7-15.3) 01/23/20 06:17 Hct 43.5 % (32.4-45.2) 01/23/20 06:17 MCV 99.3 fl (80-96) H 01/23/20 06:17 MCH 33.8 pg (25.7-33.7) H 01/23/20 06:17 MCHC 34.0 g/dl (32.0-36.0) 01/23/20 06:17 RDW 13.0 % (11.6-15.6) 01/23/20 06:17 Plt Count 186 K/MM3 (134-434) 01/23/20 06:17 MPV 8.4 fl (7.5-11.1) 01/23/20 06:17 Absolute Neuts (auto) 5.8 K/mm3 (1.5-8.0) 01/23/20 06:17 Neutrophils % 70.3 % (42.8-82.8) 01/23/20 06:17 Lymphocytes % 17.8 % (8-40) 01/23/20 06:17 Monocytes % 10.9 % (3.8-10.2) H 01/23/20 06:17 Eosinophils % 0.6 % (0-4.5) 01/23/20 06:17 Basophils % 0.4 % (0-2.0) 01/23/20 06:17 Nucleated RBC % 0 % (0-0) 01/23/20 06:17 Sodium 141 mmol/L (136-145) 01/23/20 06:17 Potassium 3.6 mmol/L (3.5-5.1) 01/23/20 06:17 Chloride 108 mmol/L (98-107) H 01/23/20 06:17 Carbon Dioxide 25 mmol/L (21-32) 01/23/20 06:17 Anion Gap 8 MMOL/L (8-16) 01/23/20 06:17 BUN 10.5 mg/dL (7-18) 01/23/20 06:17 Creatinine 0.8 mg/dL (0.55-1.3) 01/23/20 06:17 Est GFR (CKD-EPI)AfAm 89.67 01/23/20 06:17 Est GFR (CKD-EPI)NonAf 77.37 01/23/20 06:17 Random Glucose 85 mg/dL (74-106) 01/23/20 06:17 Lactic Acid 0.9 mmol/L (0.4-2.0) 01/22/20 21:27 Calcium 8.4 mg/dL (8.5-10.1) L 01/23/20 06:17 Total Bilirubin 0.5 mg/dL (0.2-1) 01/22/20 21:27 AST 11 U/L (15-37) L 01/22/20 21:27 ALT 19 U/L (13-61) 01/22/20 21:27 Alkaline Phosphatase 52 U/L (45-117) 01/22/20 21:27 Creatine Kinase 28 U/L (26-192) 01/22/20 21:27 Troponin I < 0.02 ng/ml (0.00-0.05) 01/22/20 21:27 Total Protein 6.9 g/dl (6.4-8.2) 01/22/20 21:27 Albumin 3.9 g/dl (3.4-5.0) 01/22/20 21:27 Lipase 125 U/L (73-393) 01/22/20 21:27 Current Medications Generic Name Dose Route Start Last Admin Trade Name Freq PRN Reason Stop Dose Admin Acetaminophen/Butalbital/Caffeine 1 tablet 01/23/20 00:44 Fioricet - PO Q6H PRN HEADACHE Atenolol 50 mg 01/23/20 10:00 01/23/20 11:19 Tenormin - PO Not Given DAILY JOSE MARTIN Atorvastatin Calcium 10 mg 01/23/20 22:00 Lipitor - PO HS JOSE MARTIN Sodium Chloride 1,000 mls @ 100 mls/hr 01/23/20 00:45 01/23/20 11:17 Normal Saline - IV 100 mls/hr ASDIR JOSE MARTIN Administration Levothyroxine Sodium 50 mcg 01/24/20 07:00 Synthroid - PO 0700 JOSE MARTIN Ondansetron HCl 4 mg 01/23/20 00:43 Zofran Injection IVPUSH Q6H PRN NAUSEA Constitutional: Yes: Calm Eyes: Yes: Conjunctiva Clear HENT: Yes: Atraumatic Neck: Yes: Trachea Midline Cardiovascular: Yes: Regular Rate and Rhythm Respiratory: Yes: CTA Bilaterally Gastrointestinal Inspection: Yes: Scars (healed laparoscopic and Pfannensteil incisions) ...Auscultate: Yes: Normoactive Bowel Sounds ...Palpate: Yes: Soft, Other (nontender) ...Rectal Exam: Yes: Deferred (declined) Edema: No Labs: CBC, BMP 01/23/20 06:17 01/23/20 06:17 Problem List - Problems (1) Intractable vomiting with nausea Code(s): R11.2 - NAUSEA WITH VOMITING, UNSPECIFIED (2) Gastric band slippage Code(s): T85.528A - DISPLACEMENT OF GASTROINTESTINAL PROSTH DEV/GRFT, INIT (3) LAP-BAND surgery status Code(s): Z98.84 - BARIATRIC SURGERY STATUS (4) Hypothyroid Code(s): E03.9 - HYPOTHYROIDISM, UNSPECIFIED (5) Rheumatoid arthritis Code(s): M06.9 - RHEUMATOID ARTHRITIS, UNSPECIFIED (6) Hyperlipidemia Code(s): E78.5 - HYPERLIPIDEMIA, UNSPECIFIED (7) Gastritis Code(s): K29.70 - GASTRITIS, UNSPECIFIED, WITHOUT BLEEDING Assessment/Plan Impression: - Intractible vomiting due to lap band slippage caused by vomiting attempts to clear spare ribs Plan: - Situation remedied by Dr Jimenez by decompressing the lap band - Plan as per Dr Tony Espinoza will be covering tomorrow
[2020-01-23] MEDS: ATORVASTATIN CA 10 MG TABLET (FP) PO SCH (21:14)
[2020-01-24] MEDS: LEVOTHYROXINE NA 50 MCG TABLET (FP) PO SCH (06:22)
[2020-01-24] MEDS ORDERED: FAMOTIDINE 20 MG/50 ML IVPB 20 MG/50 ML MG IVPB SCH (08:00)
[2020-01-24] MEDS ORDERED: FAMOTIDINE 20 MG TABLET PO ONE (08:08)
[2020-01-24] MEDS: SODIUM CHLORIDE 1,000 ML IV SCH ×2 (09:15→17:35)
[2020-01-24] MEDS: ATENOLOL 50 MG TABLET (FP) PO SCH (09:19)
--- NOTE | 2020-01-24 14:16 | PN ---
Physical Exam: SUBJECTIVE: Patient seen and examined. Feeling better this morning. Tolerated clears overnight. Was advance to soft diet this morning, but was not able to tolerate. OBJECTIVE: Vital Signs Temperature 98.5 F 01/24/20 06:00 Pulse Rate 56 L 01/24/20 06:00 Respiratory Rate 20 01/24/20 06:00 Blood Pressure 120/77 01/24/20 06:00 O2 Sat by Pulse Oximetry (%) 95 01/23/20 21:00 GENERAL: The patient is awake, alert, and fully oriented, in no acute distress. HEAD: Normal with no signs of trauma. EYES: PERRLA, EOMI, sclera anicteric, conjunctiva clear. ENT: moist mucous membranes. NECK: Trachea midline, full range of motion, supple. LUNGS: Breath sounds equal, clear to auscultation bilaterally HEART: Regular rate and rhythm, S1, S2 ABDOMEN: Soft, nontender, nondistended, normoactive bowel sounds EXTREMITIES: 2+ pulses, warm, well-perfused, no edema. NEUROLOGICAL: Cranial nerves II through XII grossly intact. Normal speech PSYCH: Normal mood, normal affect. SKIN: Warm, dry, normal turgor Laboratory Results - last 24 hr 01/23/20 00:28 COVID-19 ([facility]) Not detected Active Medications Generic Name Dose Route Start Last Admin Trade Name Freq PRN Reason Stop Dose Admin Acetaminophen/Butalbital/Caffeine 1 tablet 01/23/20 00:44 01/24/20 05:08 Fioricet - PO 1 tablet Q6H PRN Administration HEADACHE Atenolol 50 mg 01/23/20 10:00 01/24/20 09:19 Tenormin - PO 50 mg DAILY JOSE MARTIN Administration Atorvastatin Calcium 10 mg 01/23/20 22:00 01/23/20 21:14 Lipitor - PO 10 mg HS JOSE MARTIN Administration Sodium Chloride 1,000 mls @ 100 mls/hr 01/23/20 00:45 01/24/20 09:15 Normal Saline - IV Not Given ASDIR JOSE MARTIN Levothyroxine Sodium 50 mcg 01/24/20 07:00 01/24/20 06:22 Synthroid - PO 50 mcg 0700 JOSE MARTIN Administration Ondansetron HCl 4 mg 01/23/20 00:43 Zofran Injection IVPUSH Q6H PRN NAUSEA ASSESSMENT/PLAN: Pt is a 64yo F with a PMHx of lap band surgery performed by Dr. Jimenez in 2011, and fluid removal via EGD for similar symptoms with relief in [address] Olguin and HTN presenting with nausea, vomiting and headache for the past 2 days. Noted to be hypertensive on admission (176/79), unremarkable physical exam. CT abdomen pelvis shows no obstruction, CT head with no acute changes. Admitted for nausea/vomiting likely secondary to lap band, for follow up with GI and surgery. #Nausea/vomiting - Hx of lap band surgery in 2011 - Consulted GI (Dr. Velazquez) . Recommendations appreciated. - Consulted surgery (Dr. Jimenez). Recommendations appreciated. - UGI performed, band at 90 degree angle (should be at 45-60 degrees) - right sub-Q port accessed and all fluid removed (3.0 cc NS). - unable to tolerate soft diet, esophogram ordered - NPO - Protonix 40mg IV daily - NS @ 100cc/hr #Headache - Possibly secondary to nausea/vomiting, heat - CT head negative for acute bleed - Fioricet given, helps at home with migraines #Hypertension - Continue home atenolol and monitor vitals #Hx of hypothyroidism - Cont home synthroid #Hx of hyperlipidemia - Cont home simvastatin #Rule out COVID - COVID test pending #FEN: - NPO - NS @ 100cc/hr - routine bmp monitoring #Prophylaxis: - SCD #Dispo: -full code -med surg Visit type - Emergency Visit Emergency Visit: Yes ED Registration Date: 01/22/20 Care time: The patient presented to the Emergency Department on the above date and was hospitalized for further evaluation of their emergent condition. - New Patient This patient is new to me today: No - Critical Care Critical Care patient: No ATTENDING PHYSICIAN STATEMENT I saw and evaluated the patient. I reviewed the resident's note and discussed the case with the resident. I agree with the resident's findings and plan as documented. SUBJECTIVE: OBJECTIVE: ASSESSMENT AND PLAN:
[2020-01-24] MEDS: ACETAMINOPHEN 1000 MG/100 ML VIAL (NON FORMULARY) IVPB PRN (18:07)
--- NOTE | 2020-01-24 22:03 | PN ---
Teaching Attending Note Name of Resident: Emily Canseco ATTENDING PHYSICIAN STATEMENT I saw and evaluated the patient. I reviewed the resident's note and discussed the case with the resident. I agree with the resident's findings and plan as documented. SUBJECTIVE: Patient seen and examined at bedside, admitted for nausea/vomiting, ?obstruction of lap-band, patient's band adjusted by surgery was seen w/ some inflammation still cannot tolerate soft diet. VSS. OBJECTIVE: GA comfortable, AAox3 HEENT NC/AT, EOMI, neck supple Chest CTAB CVS s1, S2+, RRR Abd Soft, obese, NT, BS+, no guarding Ext no LE edema Vital Signs - 24 hr 01/24/20 01/24/20 01/24/20 06:00 09:00 14:00 Temperature 98.5 F 99.0 F Pulse Rate 56 L 59 L Respiratory 20 20 Rate Blood Pressure 120/77 121/74 O2 Sat by Pulse 95 Oximetry (%) 01/24/20 18:00 Temperature 98.7 F Pulse Rate 60 Respiratory 20 Rate Blood Pressure 124/77 O2 Sat by Pulse Oximetry (%) Laboratory Results - last 24 hr 01/23/20 00:28 COVID-19 ([facility]) Not detected Home Medications Medication Instructions Recorded Atenolol [Tenormin -] 50 mg PO DAILY 09/29/11 Levothyroxine [Synthroid -] 50 mcg PO DAILY 12/11/15 Simvastatin [Zocor -] 20 mg PO HS 12/11/15 traZODone HCL [Desyrel -] 50 mg PO HS 12/11/15 Cyanocobalamin (Vitamin B-12) 2,500 mcg PO DAILY 08/17/19 [Vitamin B12] Melatonin 10 mg PO HS 08/17/19 Vitamin E 800 unit PO DAILY 08/17/19 Current Medications Generic Name Dose Route Start Last Admin Trade Name Freq PRN Reason Stop Dose Admin Acetaminophen 1,000 mg 01/24/20 17:47 01/24/20 18:07 Ofirmev Injection - IVPB 01/25/20 17:47 1,000 mg Q6H PRN Administration PAIN LEVEL 6-10 Acetaminophen/Butalbital/Caffeine 1 tablet 01/23/20 00:44 01/24/20 05:08 Fioricet - PO 1 tablet Q6H PRN Administration HEADACHE Atenolol 50 mg 01/23/20 10:00 01/24/20 09:19 Tenormin - PO 50 mg DAILY JOSE MARTIN Administration Atorvastatin Calcium 10 mg 01/23/20 22:00 01/23/20 21:14 Lipitor - PO 10 mg HS JOSE MARTIN Administration Sodium Chloride 1,000 mls @ 100 mls/hr 01/23/20 00:45 01/24/20 17:35 Normal Saline - IV 100 mls/hr ASDIR JOSE MARTIN Administration Levothyroxine Sodium 50 mcg 01/24/20 07:00 01/24/20 06:22 Synthroid - PO 50 mcg 0700 JOSE MARTIN Administration Ondansetron HCl 4 mg 01/23/20 00:43 Zofran Injection IVPUSH Q6H PRN NAUSEA Pantoprazole Sodium 40 mg 01/25/20 10:00 Protonix Iv IVPUSH DAILY JOSE MARTIN ASSESSMENT AND PLAN: 64 F S/p lap band procedure w/ refractory nausea/vomiting HTN HLD Hypothyroidism h/o TAHSO Plan: Surgery follow up for re-adjustment of lap band No focal signs of infection Clear diet as tolerated, if still vomiting, NPO and re-image Supplement PPI, avoid opioids Send TSH panel DVT ppx: Ambulation
[2020-01-24] MEDS: ATORVASTATIN CA 10 MG TABLET (FP) PO SCH (22:08)
[2020-01-25] MEDS: SODIUM CHLORIDE 1,000 ML IV SCH (02:34)
[2020-01-25] MEDS: ACETAMINOPHEN 1000 MG/100 ML VIAL (NON FORMULARY) IVPB PRN ×3 (02:35→14:10)
[2020-01-25] MEDS: ONDANSETRON 4 MG/2 ML VIAL IVPUSH PRN ×3 (04:48→17:36)
[2020-01-25] MEDS: LEVOTHYROXINE NA 50 MCG TABLET (FP) PO SCH (06:35)
[2020-01-25 08:29] LABS: BLOOD UREA NITROGEN 10.8 mg/dL (7-18); CREATININE 0.7 mg/dL (0.55-1.3); MAGNESIUM 2.1 mg/dL (1.8-2.4); POTASSIUM 3.6 mmol/L (3.5-5.1)
--- NOTE | 2020-01-25 09:28 | PN ---
Progress Note (short form) - Note Progress Note: 01/25/2020 Afebrile; VSS GI consult appreciated Pt with continued vomiting Cannot hold sips of water P/E- Abd- mild tenderness in upper abdomen upon palpation (? secondary to vomiting) WBC-8.2 H/H-14.8/43.5 UGI (01/23)- Band still slipped contrast with little passage thru band I- Slipped gastric Band with obstruction P- OR 01/25 for Band removal Explained details to pt. Pt agrees Keep NPO except ice chips sparingly
[2020-01-25] MEDS: PANTOPRAZOLE SODIUM 40 MG VIAL IVPUSH SCH (09:36)
[2020-01-25] MEDS: ATENOLOL 50 MG TABLET (FP) PO SCH (09:36)
[2020-01-25] MEDS ORDERED: DEXTROSE 5%-NORMAL SALINE 1,000 ML IV SCH (10:00)
--- NOTE | 2020-01-25 10:12 | PN ---
Physical Exam: SUBJECTIVE: Patient seen and examined at bedside this morning. Patient continue to have nausea and vomiting her meal from yesterday. OBJECTIVE: Vital Signs Temperature 98.5 F 01/25/20 06:00 Pulse Rate 69 01/25/20 06:00 Respiratory Rate 20 01/25/20 06:00 Blood Pressure 124/79 01/25/20 06:00 O2 Sat by Pulse Oximetry (%) 96 01/24/20 22:00 GENERAL: The patient is awake, alert, and fully oriented, in no acute distress. HEAD: Normal with no signs of trauma. EYES: PERRLA, EOMI, sclera anicteric, conjunctiva clear. ENT: moist mucous membranes. NECK: Trachea midline, full range of motion, supple. LUNGS: Breath sounds equal, clear to auscultation bilaterally HEART: Regular rate and rhythm, S1, S2 ABDOMEN: Soft, nontender, nondistended, normoactive bowel sounds EXTREMITIES: 2+ pulses, warm, well-perfused, no edema. NEUROLOGICAL: Cranial nerves II through XII grossly intact. Normal speech PSYCH: Normal mood, normal affect. SKIN: Warm, dry, normal turgor Laboratory Results - last 24 hr 01/23/20 01/25/20 00:28 07:22 Sodium 140 Potassium 3.6 Chloride 107 Carbon Dioxide 24 Anion Gap 9 BUN 10.8 Creatinine 0.7 Est GFR (CKD-EPI)AfAm 105.38 Est GFR (CKD-EPI)NonAf 90.92 Random Glucose 66 L Calcium 8.0 L Magnesium 2.1 COVID-19 ([facility]) Not detected Active Medications Generic Name Dose Route Start Last Admin Trade Name Ilyaq PRN Reason Stop Dose Admin Acetaminophen 1,000 mg 01/24/20 17:47 01/25/20 08:23 Ofirmev Injection - IVPB 01/25/20 17:47 1,000 mg Q6H PRN Administration PAIN LEVEL 6-10 Acetaminophen/Butalbital/Caffeine 1 tablet 01/23/20 00:44 01/24/20 05:08 Fioricet - PO 1 tablet Q6H PRN Administration HEADACHE Atenolol 50 mg 01/23/20 10:00 01/25/20 09:36 Tenormin - PO 50 mg DAILY JOSE MARTIN Administration Atorvastatin Calcium 10 mg 01/23/20 22:00 01/24/20 22:08 Lipitor - PO Not Given HS JOSE MARTIN Dextrose/Sodium Chloride 1,000 mls @ 83 mls/hr 01/25/20 10:00 D5-Ns - IV ASDIR JOSE MARTIN Levothyroxine Sodium 38 mcg 01/25/20 10:15 Synthroid Injection - IVPUSH DAILY JOSE MARTIN Ondansetron HCl 4 mg 01/23/20 00:43 01/25/20 04:48 Zofran Injection IVPUSH 4 mg Q6H PRN Administration NAUSEA Pantoprazole Sodium 40 mg 01/25/20 10:00 01/25/20 09:36 Protonix Iv IVPUSH 40 mg DAILY JOSE MARTIN Administration ASSESSMENT/PLAN: Pt is a 64yo F with a PMHx of lap band surgery performed by Dr. Jimenez in 2011, and fluid removal via EGD for similar symptoms with relief [place] [address] Olguin and HTN presenting with nausea, vomiting and headache for the past 2 days. Noted to be hypertensive on admission (176/79), unremarkable physical exam. CT abdomen pelvis shows no obstruction, CT head with no acute changes. Admitted for willis sea/vomiting likely secondary to lap band, for follow up with GI and surgery. #Nausea/vomiting - Hx of lap band surgery in 2011 - Consulted GI (Dr. Velazquez) . Recommendations appreciated. - Consulted surgery (Dr. Jimenez). Recommendations appreciated. - Esophogram done - only small amounts of oral contrast were passing through the gastric banding suggestive of severe narrowing/stenosis at this level. - plan for OR 01/25 for Band removal - Continue NPO with ice chips - Covid negative - Protonix 40mg IV daily - D5-NS @ 100cc/hr #Headache - Possibly secondary to nausea/vomiting - CT head negative for acute bleed - TYlenol prn #Hypertension - Continue home atenolol and monitor vitals #Hx of hypothyroidism - Cont home synthroid #Hx of hyperlipidemia - Cont home simvastatin #FEN: - NPO - D5-NS @ 100cc/hr - routine bmp monitoring #Prophylaxis: - SCD #Dispo: -full code -med surg Visit type - Emergency Visit Emergency Visit: Yes ED Registration Date: 01/22/20 Care time: The patient presented to the Emergency Department on the above date and was hospitalized for further evaluation of their emergent condition. - New Patient This patient is new to me today: No - Critical Care Critical Care patient: No ATTENDING PHYSICIAN STATEMENT I saw and evaluated the patient. I reviewed the resident's note and discussed the case with the resident. I agree with the resident's findings and plan as documented. SUBJECTIVE: OBJECTIVE: ASSESSMENT AND PLAN:
[2020-01-25] MEDS: DEXTROSE 5%-NORMAL SALINE 1,000 ML IV SCH ×2 (11:08→21:07)
[2020-01-25] MEDS: LEVOTHYROXINE SODIUM 100 MCG VIAL IVPUSH SCH (11:20)
[2020-01-25] MEDS ORDERED: PT OWN MED DRAWER 7, Y5N ONE (17:56)
[2020-01-25] MEDS: MAG HYDROX/ALH/SMC/DPHA/LIDO 240 ML MOUTHWASH MM SCH ×2 (18:10→23:02)
[2020-01-25] MEDS ORDERED: ACETAMINOPHEN 1000 MG/100 ML VIAL (NON FORMULARY) IVPB ONE (20:38)
[2020-01-25] MEDS: ATORVASTATIN CA 10 MG TABLET (FP) PO SCH (21:00)
--- NOTE | 2020-01-26 00:18 | PN ---
Teaching Attending Note Name of Resident: Emily Canseco ATTENDING PHYSICIAN STATEMENT I saw and evaluated the patient. I reviewed the resident's note and discussed the case with the resident. I agree with the resident's findings and plan as documented. SUBJECTIVE: Patient seen and examined at bedside, found to have dislodged/obstructed gastric band, patient requesting removal of band, for OR in AM. VSS. NPO. OBJECTIVE: GA comfortable, AAox3, speaking in full sentences HEENT NC/AT, EOMI, neck supple, dry MM Chest CTAB CVS s1, S2+, RRR Abd Soft, obese, NT, BS+, no guarding Ext no LE edema Vital Signs - 24 hr 01/25/20 01/25/20 01/25/20 06:00 11:14 14:00 Temperature 98.5 F 98.5 F 98.8 F Pulse Rate 69 60 71 Respiratory 20 18 18 Rate Blood Pressure 124/79 146/75 148/75 O2 Sat by Pulse 100 100 Oximetry (%) 01/25/20 01/25/20 16:30 21:04 Temperature 98.8 F 99.3 F Pulse Rate 65 74 Respiratory 20 20 Rate Blood Pressure 153/80 127/89 O2 Sat by Pulse 96 Oximetry (%) Laboratory Results - last 24 hr 01/25/20 07:22 Sodium 140 Potassium 3.6 Chloride 107 Carbon Dioxide 24 Anion Gap 9 BUN 10.8 Creatinine 0.7 Est GFR (CKD-EPI)AfAm 105.38 Est GFR (CKD-EPI)NonAf 90.92 Random Glucose 66 L Calcium 8.0 L Magnesium 2.1 Home Medications Medication Instructions Recorded Atenolol [Tenormin -] 50 mg PO DAILY 09/29/11 Levothyroxine [Synthroid -] 50 mcg PO DAILY 12/11/15 Simvastatin [Zocor -] 20 mg PO HS 12/11/15 traZODone HCL [Desyrel -] 50 mg PO HS 12/11/15 Cyanocobalamin (Vitamin B-12) 2,500 mcg PO DAILY 08/17/19 [Vitamin B12] Melatonin 10 mg PO HS 08/17/19 Vitamin E 800 unit PO DAILY 08/17/19 Current Medications Generic Name Dose Route Start Last Admin Trade Name Freq PRN Reason Stop Dose Admin Acetaminophen/Butalbital/Caffeine 1 tablet 01/23/20 00:44 01/24/20 05:08 Fioricet - PO 1 tablet Q6H PRN Administration HEADACHE Atenolol 50 mg 01/23/20 10:00 01/25/20 09:36 Tenormin - PO 50 mg DAILY JOSE MARTIN Administration Atorvastatin Calcium 10 mg 01/23/20 22:00 01/25/20 21:00 Lipitor - PO Not Given HS JOSE MARTIN Dextrose/Sodium Chloride 1,000 mls @ 100 mls/hr 01/25/20 10:31 01/25/20 21:07 D5-Ns - IV 100 mls/hr ASDIR JOSE MARTIN Administration Levothyroxine Sodium 38 mcg 01/25/20 10:15 01/25/20 11:20 Synthroid Injection - IVPUSH 38 mcg DAILY JOSE MARTIN Administration Lidocaine/Aluminum/Magnesium/Simeth 5 ml 01/25/20 18:00 01/25/20 23:02 Magic Mouthwash *Sjr Formula* - MM 5 ml Q6HPO JOSE MARTIN Administration Ondansetron HCl 4 mg 01/23/20 00:43 01/25/20 17:36 Zofran Injection IVPUSH 4 mg Q6H PRN Administration NAUSEA Pantoprazole Sodium 40 mg 01/25/20 10:00 01/25/20 09:36 Protonix Iv IVPUSH 40 mg DAILY JOSE MARTIN Administration ASSESSMENT AND PLAN: 64 F S/p lap band procedure w/ refractory nausea/vomiting d/t obstruction/disloged G band HTN HLD Hypothyroidism h/o TAHSO Plan: for OR procedure in AM for band removal Keep strict NPO No focal signs of infection Supplement PPI, avoid opioids DVT ppx: Ambulation
[2020-01-26] MEDS ORDERED: ACETAMINOPHEN/CAFFEINE/BUTALBITAL 1 TAB PO PRN (00:50)
[2020-01-26] MEDS ORDERED: TRIMETHOBENZAMIDE HCL 200MG/2ML INJ IM ONE (01:14)
[2020-01-26] MEDS: MAG HYDROX/ALH/SMC/DPHA/LIDO 240 ML MOUTHWASH MM SCH ×3 (05:48→17:05)
[2020-01-26] MEDS: ONDANSETRON 4 MG/2 ML VIAL IVPUSH PRN ×2 (05:53→11:49)
[2020-01-26] MEDS ORDERED: INSULIN (NOVOLOG) ASPART 100 UNITS/ML 10ML VIAL ONE (06:14)
[2020-01-26] MEDS ORDERED: PT OWN MED DRAWER 7, Y5N ONE ×2 (06:15→09:52)
[2020-01-26 08:22] LABS: BASO % 0.6 % (0-2.0); EOS % 1.8 % (0-4.5); HEMATOCRIT 43.6 % (32.4-45.2); HEMOGLOBIN 14.7 GM/dL (10.7-15.3); LYMPH % 13.4 % (8-40); MCH 32.9 pg (25.7-33.7); MCHC 33.7 g/dl (32.0-36.0); MEAN CELL VOLUME 97.5 fl (80-96); MEAN PLT VOLUME 8.1 fl (7.5-11.1); MONO % 10.6 % (3.8-10.2); NEUT % 73.6 % (42.8-82.8); PLATELET COUNT 185 K/MM3 (134-434); RBC 4.47 M/mm3 (3.60-5.2); RDW 12.5 % (11.6-15.6); WHITE BLOOD COUNT 7.7 K/mm3 (4.0-10.0)
[2020-01-26 08:53] LABS: ALBUMIN 3.2 g/dl (3.4-5.0); BILIRUBIN,TOTAL 0.6 mg/dL (0.2-1); BLOOD UREA NITROGEN 5.9 mg/dL (7-18); CALCIUM 8.4 mg/dL (8.5-10.1); CREATININE 0.7 mg/dL (0.55-1.3); POTASSIUM 3.3 mmol/L (3.5-5.1); TOT PROT 5.9 g/dl (6.4-8.2)
[2020-01-26] MEDS: ATENOLOL 50 MG TABLET (FP) PO SCH (09:04)
--- NOTE | 2020-01-26 10:02 | PN ---
Physical Exam: SUBJECTIVE: Patient seen and examined OBJECTIVE: Vital Signs Temperature 99.3 F 01/26/20 06:00 Pulse Rate 78 01/26/20 06:42 Respiratory Rate 20 01/25/20 21:04 Blood Pressure 145/85 01/26/20 06:42 O2 Sat by Pulse Oximetry (%) 96 01/25/20 21:04 GENERAL: The patient is awake, alert, and fully oriented, in no acute distress. HEAD: Normal with no signs of trauma. EYES: PERRLA, EOMI, sclera anicteric, conjunctiva clear. ENT: moist mucous membranes. NECK: Trachea midline, full range of motion, supple. LUNGS: Breath sounds equal, clear to auscultation bilaterally HEART: Regular rate and rhythm, S1, S2 ABDOMEN: Soft, nontender, nondistended, normoactive bowel sounds EXTREMITIES: 2+ pulses, warm, well-perfused, no edema. NEUROLOGICAL: Cranial nerves II through XII grossly intact. Normal speech PSYCH: Normal mood, normal affect. SKIN: Warm, dry, normal turgor Laboratory Results - last 24 hr 01/26/20 01/26/20 07:55 07:55 WBC 7.7 RBC 4.47 Hgb 14.7 Hct 43.6 MCV 97.5 H MCH 32.9 MCHC 33.7 RDW 12.5 Plt Count 185 MPV 8.1 Absolute Neuts (auto) 5.7 Neutrophils % 73.6 Lymphocytes % 13.4 D Monocytes % 10.6 H Eosinophils % 1.8 D Basophils % 0.6 Nucleated RBC % 0 Sodium 141 Potassium 3.3 L Chloride 106 Carbon Dioxide 24 Anion Gap 10 BUN 5.9 L Creatinine 0.7 Est GFR (CKD-EPI)AfAm 105.38 Est GFR (CKD-EPI)NonAf 90.92 Random Glucose 115 H Calcium 8.4 L Magnesium 2.0 Total Bilirubin 0.6 AST 12 L ALT 16 Alkaline Phosphatase 47 Total Protein 5.9 L Albumin 3.2 L Active Medications Generic Name Dose Route Start Last Admin Trade Name Freq PRN Reason Stop Dose Admin Acetaminophen/Butalbital/Caffeine 1 tablet 01/26/20 00:50 Fioricet - PO Q6H PRN HEADACHE Atenolol 50 mg 01/23/20 10:00 01/26/20 09:04 Tenormin - PO Not Given DAILY JOSE MARTIN Atorvastatin Calcium 10 mg 01/23/20 22:00 01/25/20 21:00 Lipitor - PO Not Given HS JOSE MARTIN Dextrose/Sodium Chloride 1,000 mls @ 100 mls/hr 01/25/20 10:31 01/25/20 21:07 D5-Ns - IV 100 mls/hr ASDIR JOSE MARTIN Administration Potassium Chloride 10 meq in 100 mls @ 100 mls/hr 01/26/20 10:00 Potassium Chloride 10 Meq Premix Ivpb - IVPB 01/26/20 12:59 Q60M JOSE MARTIN Levothyroxine Sodium 38 mcg 01/25/20 10:15 01/25/20 11:20 Synthroid Injection - IVPUSH 38 mcg DAILY JOSE MARTIN Administration Lidocaine/Aluminum/Magnesium/Simeth 5 ml 01/25/20 18:00 01/26/20 05:48 Magic Mouthwash *Sjr Formula* - MM Not Given Q6HPO JOSE MARTIN Ondansetron HCl 4 mg 01/23/20 00:43 01/26/20 05:53 Zofran Injection IVPUSH 4 mg Q6H PRN Administration NAUSEA Pantoprazole Sodium 40 mg 01/25/20 10:00 01/25/20 09:36 Protonix Iv IVPUSH 40 mg DAILY JOSE MARTIN Administration ASSESSMENT/PLAN: Pt is a 64yo F with a PMHx of lap band surgery performed by Dr. Jimenez in 2011, and fluid removal via EGD for similar symptoms with relief [place] [address] Olguin and HTN presenting with nausea, vomiting and headache for the past 2 days. Noted to be hypertensive on admission (176/79), unremarkable physical exam. CT abdomen pelvis shows no obstruction, CT head with no acute changes. Admitted for nausea/vomiting likely secondary to lap band, for follow up with GI and surgery. #Nausea/vomiting - Hx of lap band surgery in 2011 - Consulted GI (Dr. Velazquez) . Recommendations appreciated. - Consulted surgery (Dr. Jimenez). Recommendations appreciated. - Esophogram done - only small amounts of oral contrast were passing through the gastric banding suggestive of severe narrowing/stenosis at this level. - plan for OR for Band removal - Continue NPO with ice chips - Covid negative - Protonix 40mg IV daily - D5-NS @ 100cc/hr #Headache - Possibly secondary to nausea/vomiting - CT head negative for acute bleed - TYlenol prn #Hypertension - Continue home atenolol and monitor vitals #Hx of hypothyroidism - Cont home synthroid #Hx of hyperlipidemia - Cont home simvastatin #FEN: - NPO - D5-NS @ 100cc/hr - routine bmp monitoring #Prophylaxis: - SCD #Dispo: -full code -med surg Visit type - Emergency Visit Emergency Visit: Yes ED Registration Date: 01/22/20 Care time: The patient presented to the Emergency Department on the above date and was hospitalized for further evaluation of their emergent condition. - New Patient This patient is new to me today: No - Critical Care Critical Care patient: No ATTENDING PHYSICIAN STATEMENT I saw and evaluated the patient. I reviewed the resident's note and discussed the case with the resident. I agree with the resident's findings and plan as documented. SUBJECTIVE: OBJECTIVE: ASSESSMENT AND PLAN:
[2020-01-26] MEDS: DEXTROSE 5%-NORMAL SALINE 1,000 ML IV SCH (10:44)
[2020-01-26] MEDS: PANTOPRAZOLE SODIUM 40 MG VIAL IVPUSH SCH (10:44)
[2020-01-26] MEDS: KCL 10 MEQ IVPB 10 MEQ/100 ML INFUS.BAG IVPB SCH ×3 (10:44→18:00)
[2020-01-26] MEDS: LEVOTHYROXINE SODIUM 100 MCG VIAL IVPUSH SCH (11:49)
[2020-01-26] MEDS ORDERED: BUPIVACAINE HCL/PF 0.25% (2.5MG/ML) 10 ML VIAL ONE (13:04)
[2020-01-26] MEDS ORDERED: fentaNYL CITRATE 250 MCG/5 ML VIAL ONE (13:30)
[2020-01-26] MEDS ORDERED: ROCURONIUM BROMIDE 100 MG/10 ML VIAL ONE (13:36)
[2020-01-26] MEDS ORDERED: ceFAZolin 2 GRAM PREMIX BAG IVPB ONE (13:40)
[2020-01-26] MEDS ORDERED: ceFAZolin SODIUM 1 GM VIAL ONE (13:53)
[2020-01-26] MEDS ORDERED: DEXAMETHASONE SOD PHOSPHATE 4 MG/1 ML VIAL ONE (14:01)
[2020-01-26] MEDS ORDERED: LIDOCAINE HCL/PF 2% SDV 5ML VIAL ONE (14:01)
[2020-01-26] MEDS ORDERED: NEOSTIGMINE METHYLSULFATE 0.5 MG/ML - 10 ML MDV ONE (14:09)
[2020-01-26] MEDS ORDERED: BUPIVACAINE HCL 0.25% 125 MG/50 ML VIAL NR ONE ×2 (14:20→14:31)
[2020-01-26] MEDS ORDERED: MINERAL OIL/PETROLATUM,WHITE 3.5 GM TUBE ONE (14:32)
[2020-01-26] MEDS ORDERED: PROMETHAZINE HCL 50 MG/1 ML AMP IM PRN (14:46)
[2020-01-26] MEDS ORDERED: ACETAMINOPHEN 325 MG TABLET (FP) PO PRN (14:46)
[2020-01-26] MEDS ORDERED: ESMOLOL HCL 100,000 MCG/10 ML VIAL ONE (14:46)
[2020-01-26] MEDS ORDERED: oxyCODONE HCL 5 MG TABLET PO PRN (14:46)
--- NOTE | 2020-01-26 14:53 | OP ---
Operative Note - Note: Operative Date: 01/26/20 Pre-Operative Diagnosis: Gastric Obstruction secondary to slipped gastric band. Vomiting Operation: Laparoscopic removal of gastric band plus subcutaneous port. Laparoscopic lysis of adhesions. Diagnostic Laparoscopy Findings: Gastric Band with slippage and herniated stomach above the Band Scar tissue lysed on lesser curvature side of band Post-Operative Diagnosis: Same as Pre-op (Scar tissue over band) Surgeon: Saulo Jimenez Audio Engineer: Ping Quan Anesthesia: General Specimens Removed: Gastric band plus sub-q port Estimated Blood Loss (mls): 20 Operative Report Dictated: Yes
[2020-01-26] MEDS ORDERED: DEXTROSE 5%-0.45% SALINE 1,000 ML IV SCH (15:00)
[2020-01-26] MEDS ORDERED: ONDANSETRON 4 MG/2 ML VIAL IVPUSH PRN (15:06)
[2020-01-26] MEDS ORDERED: PROMETHAZINE HCL 25 MG/1 ML VIAL IVPUSH PRN (15:06)
[2020-01-26] MEDS ORDERED: LACTATED RINGERS SOLUTION 1,000 ML IV SCH (15:15)
[2020-01-26 15:47] LABS: HEMATOCRIT 41.1 % (32.4-45.2); MCH 33.4 pg (25.7-33.7); MCHC 34.1 g/dl (32.0-36.0); MEAN CELL VOLUME 98.2 fl (80-96); PLATELET COUNT 180 K/MM3 (134-434); RBC 4.18 M/mm3 (3.60-5.2); RDW 12.6 % (11.6-15.6); WHITE BLOOD COUNT 9.7 K/mm3 (4.0-10.0)
--- NOTE | 2020-01-26 16:02 | SURG ---
Surgery Process Development Manager Note Process Development Manager: Ping Quan PA-C Date of Service: 01/26/20 Diagnosis: Gastric Obstruction secondary to slipped gastric band. Vomiting Procedure: Laparoscopic removal of gastric band plus subcutaneous port. Laparoscopic lysis of adhesions. Diagnostic Laparoscopy I was present for the entirety of the operative procedure. For further detail, please refer to operative report. Visit type - Case Type Case Type: Scheduled - Emergency Emergency Visit: No - New patient This patient is new to me today: Yes Date on this admission: 01/26/20
[2020-01-26 16:22] LABS: BLOOD UREA NITROGEN 4.7 mg/dL (7-18); CALCIUM 8.4 mg/dL (8.5-10.1); CREATININE 0.8 mg/dL (0.55-1.3); POTASSIUM 3.6 mmol/L (3.5-5.1)
[2020-01-26] MEDS: FAMOTIDINE 20 MG/50 ML IVPB 20 MG/50 ML MG IVPB SCH (21:39)
[2020-01-26] MEDS: ATORVASTATIN CA 10 MG TABLET (FP) PO SCH (21:39)
[2020-01-27] MEDS: MAG HYDROX/ALH/SMC/DPHA/LIDO 240 ML MOUTHWASH MM SCH ×3 (00:03→11:08)
[2020-01-27 07:38] LABS: HEMATOCRIT 42.2 % (32.4-45.2); HEMOGLOBIN 14.4 GM/dL (10.7-15.3); MCH 32.9 pg (25.7-33.7); MCHC 34.1 g/dl (32.0-36.0); MEAN CELL VOLUME 96.5 fl (80-96); MEAN PLT VOLUME 8.4 fl (7.5-11.1); PLATELET COUNT 205 K/MM3 (134-434); RBC 4.37 M/mm3 (3.60-5.2); RDW 12.5 % (11.6-15.6); WHITE BLOOD COUNT 10.1 K/mm3 (4.0-10.0)
[2020-01-27 08:09] LABS: BLOOD UREA NITROGEN 6.2 mg/dL (7-18); CALCIUM 9.5 mg/dL (8.5-10.1); CREATININE 0.8 mg/dL (0.55-1.3); MAGNESIUM 2.1 mg/dL (1.8-2.4); POTASSIUM 3.9 mmol/L (3.5-5.1)
[2020-01-27] MEDS: ATENOLOL 50 MG TABLET (FP) PO SCH (09:40)
[2020-01-27] MEDS: PANTOPRAZOLE SODIUM 40 MG VIAL IVPUSH SCH (09:40)
[2020-01-27] MEDS: FAMOTIDINE 20 MG/50 ML IVPB 20 MG/50 ML MG IVPB SCH (09:40)
[2020-01-27] MEDS: LEVOTHYROXINE SODIUM 100 MCG VIAL IVPUSH SCH (09:42)
[2020-01-27] MEDS: DEXTROSE 5%-NORMAL SALINE 1,000 ML IV SCH (11:07)
[2020-01-27 11:24] VITALS: TEMP 98.6
[2020-01-27 12:18] VITALS: BP 151/71; PULSE 67
--- NOTE | 2020-01-27 12:45 | PN ---
Progress Note (short form) - Note Progress Note: 01/27/2020 Pt doing much better No vomiting No GERD Tolerating PO clear liquids well P/E- Abd- all trocar sites clean, dry no cellulitis WBC-10.1 H/H-14.4/42.2 P- Advance to PO soft diet Pt desires to be D/C home- will D/C after soft diet F/U with Dr Jimenez in 2 weeks
--- NOTE | 2020-01-27 22:04 | DS ---
DATE OF ADMISSION: 01/22/2020 DATE OF DISCHARGE: 01/27/2020 HISTORY OF PRESENT ILLNESS/HOSPITAL COURSE: Patient is a 64-year-old woman who was admitted to [facility] ER on January 22, 2020, with a 2-day history of severe nausea and vomiting. The patient was noted to have a laparoscopic gastric band since 2011 and stated it slipped in 2016, but was treated successfully in Radiology. She believed at the time of admission that it had slipped again. A CAT scan done on admission showed that the contrast could not distend past the band itself. The patient was admitted n.p.o., and the following day, on January 23, 2020, she was brought down to radiology suite where a barium swallow was performed by Dr. Rodriguez. The barium swallow showed that the band had slippage and was at a 90-degree angle to the spine. It also showed that there was stomach that was herniated above the band and that contrast did not go past the band. At that time in radiology, the band was loosened and the band successfully allowed contrast now to go past it, although there was still herniated stomach above. The hope was that in the next 24 to 48 hours the band would go back towards the normal position, and the stomach would be less and allow the patient to take p.o. food well. After the x-ray, the patient was tolerating clear liquids without any difficulty. The next day, however, she was unable to be advanced to soft diet, but she had nausea and vomiting, and at this time, was not even able to tolerate liquids. It was decided at that time, since the band was loosened and could not be loosened further, that the band had to be removed. On January 26, 2020, the patient was brought to the operating room where the gastric band and subcutaneous port were removed. The details of the procedure were described in the postoperative note, but postoperatively, the patient was sent to recovery room where she was stabilized and sent back to the floor. On the floor, the patient had a much more restful night and no signs of any heartburn or vomiting noted. She was able to tolerate clear liquids very easily, and on January 27, 2020, with the patient advanced to a soft diet, ambulating well without any difficulty, she is scheduled to be discharged home. She will follow up with her primary doctor in the next 2-4 weeks and follow up with the bariatric service in 2 weeks. FOZIA RODRIGUEZ M.D. ROBB/[id number]
--- NOTE | 2020-01-28 03:00 | OP ---
DATE OF OPERATION: 01/26/2020 PREOPERATIVE DIAGNOSES: 1. Gastric obstruction secondary to slipped gastric band. 2. Vomiting. POSTOPERATIVE DIAGNOSES: 1. Gastric obstruction secondary to slipped gastric band. 2. Vomiting. 3. Abdominal adhesions around the band. PROCEDURES PERFORMED: 1. Laparoscopic removal of gastric band plus subcutaneous port component. 2. Lysis of adhesions around the gastric band. 3. Diagnostic laparoscopy. OPERATING SURGEON: Saulo Jimenez MD PLATFORM INSPECTOR: APURVA Alfaro ANESTHESIA: General. OPERATIVE PROCEDURE: Patient was brought in to the operating room, placed on the OR table in a supine position. All precautions were taken initially, including padding for the back and the feet, and Venodyne boots were placed on both lower extremities. At that point, the abdomen was prepped and draped in the usual manner. A Veress needle was placed in the left upper quadrant and a pneumoperitoneum was established. Under direct vision with an Optiview and a laparoscopic camera, a number-5 bladeless trocar was placed in the left upper quadrant and the abdomen was entered. Through that trocar, laparoscopic camera was placed. Under direct vision, a number-15 bladeless trocar was placed just to the right of the midline in the upper abdomen, followed by a number-5 bladeless trocar in the right upper quadrant and a number-5 bladeless trocar below the left costal margin. A Otis liver retractor was then placed in the epigastrium to retract the left lobe of the liver. The patient was then placed in a 20-degree reverse Trendelenburg position by Anesthesia. Immediately, there was noted to be a gastric band which was slipped senior care down the stomach, and there was significant stomach noted herniated above the band. The band tubing to the subcutaneous port was cut and the social science research assistant surgeon grabbed the tubing and pulled it to the patient's left side laterally. The operating surgeon then grabbed the lesser curvature of the stomach and the superimposed fat and pulled it inferiorly. The laparoscopic cautery was used to dissect the scar tissue and adhesions off the lesser curvature side of the band. Once this was done, the bend was now completely in view and the band was able to be rotated. The band was then opened up and removed from around the stomach, and sent off the field as a specimen to pathology. Examination showed that the prolapsed stomach was now relieved of pressure and there was no further fibrous capsule around the stomach that would benefit from any further dissection. Under direct vision, now all trocars were removed and the pneumoperitoneum released. The right upper quadrant number-15 trocar site was extended laterally and dissection continued with electrocautery down to the subcutaneous port on the right anterior rectus muscle fascia. The port was dissected off the right anterior rectus muscle fascia and then the port and remaining tubing were sent off the field as specimen to pathology with the reset of the band. Irrigation was placed in that trocar site and then all trocar sites received 0.25% Marcaine. The number-15 trocar site was first closed with 3-0 Vicryl in the subcutaneous tissue and then all trocar sites were closed with 4-0 Biosyn in subcuticular fashion. Dressings were applied. The patient awoke from anesthesia and was transferred out of the operating room to the recovery room in stable condition. Anesthesia for the case general. Surgeon Dr. Jimenez; social science research assistant Ping Quan, physician social science research assistant. Expected blood loss was 20 mL. Patient transferred to recovery room in stable condition. Danita [id number]
--- NOTE | 2020-01-30 16:33 | PATH ---
Surgical Pathology Report Patient Name: JULIA RAMÍREZ Med. Rec. #: [id number] /Age/Gender: 1955 (Age: 64) / F Account: [id number] Location: [facility] MED/SURG Taken: 01/26/2020 Received: 01/29/2020 Reported: 01/30/2020 Physicians: Saulo Jimenez M.D. Specimen(s) Received REMOVED GASTRIC BAND WITH PORT Clinical History Gastric obstruction secondary to gastric band Final Diagnosis REMOVED GASTRIC BAND WITH PORT, REMOVAL: GASTRIC BAND WITH PORT. MACROSCOPIC DIAGNOSIS. Electronically Signed Kenyatta Steven M.D. Gross Description Received fresh labeled "removed gastric band with port," is a 13.5 x 1.8 x 0.8 cm white, rubbery foreign body, consistent with a gastric band. The gastric band displays a 39 cm in length portion of white tubing extending from one aspect. Also received within the same container is a 3 cm in diameter x 1.4 cm in depth white, circular device, consistent with a port. The port displays a 19 cm in length portion of white tubing extending from one aspect. No soft tissue is present. No sections are submitted, gross only. 01/29/2020 saudi01/29/2020
== END 2020-01-27 15:18 | disposition home or self-care (01) | DRG 909 ==
LOC: JER 20:18 → JERBED 23:48 → J8W 01-23 03:15
PROVIDERS: ADMIT Internal Medicine; ATTEND Student in an Organized Health Care Education/Training Program
PROC: 0DNW4ZZ Release Peritoneum, Percutaneous Endoscopic Approach (ICD-10-PCS; 2020-01-26)
PROC: 0DJ64ZZ Inspection of Stomach, Percutaneous Endoscopic Approach (ICD-10-PCS; 2020-01-26)
PROC: 0DP64CZ Removal of Extraluminal Device from Stomach, Percutaneous Endoscopic Approach (ICD-10-PCS; principal; 2020-01-26 13:30)
DX: T85.528A Displacement of other gastrointestinal prosthetic devices, implants and grafts, initial encounter (principal); Y83.8 Other surgical procedures as the cause of abnormal reaction of the patient, or of later complication, without mention of misadventure at the time of the procedure; I10 Essential (primary) hypertension; M06.9 Rheumatoid arthritis, unspecified; E03.9 Hypothyroidism, unspecified; M79.7 Fibromyalgia; K21.9 Gastro-esophageal reflux disease without esophagitis; E78.00 Pure hypercholesterolemia, unspecified; R11.2 Nausea with vomiting, unspecified; R51 Headache; K66.0 Peritoneal adhesions (postprocedural) (postinfection); Z98.84 Bariatric surgery status
CPT/HCPCS: 36415; 70450-TC; 74177-TC; 74220-TC-FY; 74240-TC-FY; 80048; 80053; 81003; 82550; 83605; 83690; 83735; 84484; 85025; 85027; 88300-TC; 93005; 93010; 94010; 94760; 99285-25; J0131; Q9967; U0003

== ENCOUNTER 2022-03-15 02:48 | Emergency (ER) | payer OTHER ==
[2022-03-15 03:36] VITALS: PULSE 89; RESP 18; TEMP 98.7; BMI 39.8
[2022-03-15 04:28] LABS: PH,URINE 5.5 (5.0-8.0); URINE APPEARANCE CLEAR; URINE BILIRUBIN NEGATIVE (NEGATIVE); URINE COLOR YELLOW; URINE GLUCOSE (UA) NEGATIVE (NEGATIVE); URINE KETONE NEGATIVE (NEGATIVE); URINE LEUK ESTERASE NEGATIVE (NEGATIVE); URINE NITRITE NEGATIVE (NEGATIVE); URINE PROTEIN NEGATIVE (NEGATIVE); URINE UROBILINOGEN 0.2 mg/dL (0.2-1.0)
[2022-03-15 04:33] LABS: BASO % 1.1 % (0-2.0); HEMATOCRIT 42.9 % (32.4-45.2); HEMOGLOBIN 14.8 GM/dL (10.7-15.3); LYMPH % 20.8 % (8-40); MCH 33.5 pg (25.7-33.7); MCHC 34.5 g/dl (32.0-36.0); MEAN CELL VOLUME 97.1 fl (80-96); MEAN PLT VOLUME 8.3 fl (7.5-11.1); MONO % 9.1 % (3.8-10.2); PLATELET COUNT 228 10^3/uL (134-434); RBC 4.41 M/mm3 (3.60-5.2); RDW 12.8 % (11.6-15.6)
[2022-03-15 04:54] LABS: CALCIUM 9.1 mg/dL (8.5-10.1)
[2022-03-15 04:55] LABS: ALBUMIN 3.9 g/dl (3.4-5.0); BLOOD UREA NITROGEN 25.3 mg/dL (7-18)
[2022-03-15 04:59] LABS: BILIRUBIN,TOTAL 0.3 mg/dL (0.2-1)
[2022-03-15 05:11] VITALS: BP 173/85
== END 2022-03-15 05:18 | disposition home or self-care (01) ==
LOC: JER 02:48
DX: R51.9 Headache, unspecified (principal); I10 Essential (primary) hypertension
CPT/HCPCS: 36415; 71046-TC-FY; 80053; 81003; 83735; 84156; 85025; 87086; 93005; 93010; 99285-25